=== PATIENT | female | born 1950 | race Caucasian/White ===

== ENCOUNTER 2017-01-27 10:49 | Outpatient (CLI) | payer OTHER ==
--- NOTE | 2017-01-30 18:01 | Mammography Report ---
DIGITAL SCREENING MAMMOGRAM: 01/27/2017 CLINICAL INDICATION: A 66-year-old with history of late childbearing for screening. COMPARISON: 01/2016, 11/2014, 10/2013, 02/2012, 11/2010, 11/2009, 09/2008, 07/2007 TECHNIQUE: Routine CC and MLO projections were obtained of the breasts. FINDINGS: Scattered fibroglandular tissue is present within the breasts. There are no dominant tati s, suspicious microcalcifications, or secondary signs of malignancy. In comparison to the previous st udies, there are no significant changes. ASSESSMENT: NO MAMMOGRAPHIC EVIDENCE OF MALIGNANCY. NO SIGNIFICANT INTERVAL CHANGES. RECOMMENDATION: Screening mammography is recommended annually. BIRADS category 1 - negative. STANDARD QUALIFYING STATEMENTS 1. This examination was reviewed with the aid of Computed-Aided Detection (CAD). 2. A negative or benign imaging report should not delay biopsy if clinically suspicious findings are present. Consider surgical consultation if warranted. More than 5% of cancers are not identified by i maging. 3. Dense breasts may obscure an underlying neoplasm. JOB #: [id number] EXT JOB #:[id number]
== END 2017-01-27 10:50 | disposition home or self-care (01) ==
LOC: DI.N 10:49
PROVIDERS: ATTEND Family Medicine
DX: Z12.31 Encounter for screening mammogram for malignant neoplasm of breast (principal)
CPT/HCPCS: 77067

== ENCOUNTER 2017-02-01 08:00 | Outpatient (CLI) | payer OTHER ==
[2017-02-01 13:56] LABS: HEMOGLOBIN A1C 0.79 g/dL
[2017-02-01 14:03] LABS: ALBUMIN/GLOBULIN RATIO 1.4 (1.0-2.2); BILIRUBIN,TOTAL 0.6 mg/dL (0.2-1.0); BUN - BLOOD UREA NITROGEN 14 mg/dL (6-20); CALCIUM 9.6 mg/dL (8.5-10.3); CARBON DIOXIDE - CO2 24 mmol/L (21-32); CHLORIDE 107 mmol/L (101-111); CHOL/HDL RATIO 4.1 (<4.4); CHOLESTEROL 182 mg/dL; CREATININE 0.8 mg/dL (0.4-1.0); GFR - MDRD 72 (>89); GLUCOSE 139 mg/dL (70-100); HDL CHOLESTEROL 44 mg/dL; LDL/HDL RATIO 2.2 (<4.4); POTASSIUM 4.2 mmol/L (3.5-5.0); SODIUM 140 mmol/L (135-145); TOTAL PROTEIN 7.3 g/dL (6.7-8.2); TRIGLYCERIDES 213 mg/dL; VLDL CHOLESTEROL 43 mg/dL
== END 2017-02-01 08:01 | disposition home or self-care (01) ==
LOC: LAB.WCP 08:00
PROVIDERS: ATTEND Physician Assistant Medical
DX: E11.9 Type 2 diabetes mellitus without complications (principal)
CPT/HCPCS: 36415; 80053; 80061; 83036

== ENCOUNTER 2017-06-27 14:17 | Outpatient (CLI) | payer OTHER ==
[2017-06-27 13:19] LABS: ALBUMIN/GLOBULIN RATIO 1.5 (1.0-2.2); BILIRUBIN,TOTAL 0.6 mg/dL (0.2-1.0); BUN - BLOOD UREA NITROGEN 14 mg/dL (6-20); CALCIUM 9.4 mg/dL (8.5-10.3); CARBON DIOXIDE - CO2 23 mmol/L (21-32); CHLORIDE 107 mmol/L (101-111); CHOL/HDL RATIO 4.5 (<4.4); CHOLESTEROL 200 mg/dL; CREATININE 0.8 mg/dL (0.4-1.0); GFR - MDRD 72 (>89); GLUCOSE 145 mg/dL (70-100); HDL CHOLESTEROL 44 mg/dL; HEMOGLOBIN A1C 0.85 g/dL; LDL/HDL RATIO 2.8 (<4.4); POTASSIUM 4.1 mmol/L (3.5-5.0); SODIUM 137 mmol/L (135-145); TOTAL PROTEIN 7.3 g/dL (6.7-8.2); TRIGLYCERIDES 167 mg/dL; VLDL CHOLESTEROL 33 mg/dL
== END 2017-06-27 14:18 | disposition home or self-care (01) ==
LOC: LAB.WCP 14:17
PROVIDERS: ATTEND Physician Assistant Medical
DX: E11.9 Type 2 diabetes mellitus without complications (principal)
CPT/HCPCS: 36415; 80053; 80061; 82043; 83036

== ENCOUNTER 2017-10-03 15:24 | Outpatient (CLI) | payer OTHER ==
[2017-10-03 12:40] LABS: ALBUMIN 4.3 g/dL (3.2-5.5); ALBUMIN/GLOBULIN RATIO 1.5 (1.0-2.2); ALKALINE PHOSPHATASE 65 IU/L (42-121); ALT ALANINE AMINOTRANSFERASE 40 IU/L (10-60); AST ASPARTATE AMINOTRANSFERASE 28 IU/L (10-42); BILIRUBIN,TOTAL 0.8 mg/dL (0.2-1.0); BUN - BLOOD UREA NITROGEN 14 mg/dL (6-20); CALCIUM 9.4 mg/dL (8.5-10.3); CARBON DIOXIDE - CO2 23 mmol/L (21-32); CHLORIDE 104 mmol/L (101-111); CHOL/HDL RATIO 6.2 (<4.4); CHOLESTEROL 222 mg/dL; CREATININE 0.8 mg/dL (0.4-1.0); GFR - MDRD 72 (>89); GLUCOSE 141 mg/dL (70-100); HDL CHOLESTEROL 36 mg/dL; LDL CHOLESTEROL,CALCULATED 143 mg/dL; SODIUM 136 mmol/L (135-145); TOTAL PROTEIN 7.2 g/dL (6.7-8.2); VLDL CHOLESTEROL 43 mg/dL
[2017-10-03 13:10] LABS: HB2 TOTAL 15.8 g/dL; HEMOGLOBIN A1C 0.93 g/dL; HEMOGLOBIN A1C % 7.5 % (4.6-6.2)
== END 2017-10-03 15:25 | disposition home or self-care (01) ==
LOC: LAB.WCP 15:24
PROVIDERS: ATTEND Physician Assistant Medical
DX: E11.9 Type 2 diabetes mellitus without complications (principal)
CPT/HCPCS: 36415; 80053; 80061; 83036; 83721

== ENCOUNTER 2017-11-08 14:40 | Emergency (ER) | payer OTHER ==
[2017-11-08 14:54] VITALS: BP 137/96
--- NOTE | 2017-11-08 16:29 | ED Physician Documentation ---
PD HPI LOWER EXT INJURY - Stated complaint Stated Complaint: L LEG PX - Chief complaint Chief Complaint: Trauma Ext - History obtained from History obtained from: Patient - History of Present Illness PD HPI LOW EXT INJURY LOCATION: Other (Without specific injury she has had increasing left knee pain for the last few days, and today it buckled on her wall walking and now she has anterior and posterior knee pain that is worse with walking, not relieved by Tylenol or Aleve. And she feels like she can only walk up on her tiptoes.) Review of Systems Constitutional: denies: Fever, Chills : denies: Dysuria, Frequency Skin: denies: Rash, Lesions Musculoskeletal: reports: Back pain (4 months). denies: Neck pain PD PAST MEDICAL HISTORY - Past Medical History Past Medical History: No Cardiovascular: Hypertension, High cholesterol, Murmur Respiratory: None Endocrine/Autoimmune: Type 2 diabetes GI: None : None HEENT: None Psych: Panic attacks Musculoskeletal: None Derm: None - Past Surgical History Past Surgical History: Yes General: Cholecystectomy - Present Medications Home Medications: Ambulatory Orders Medication Instructions Recorded Confirmed Aspirin [Aspir-Low] 81 mg PO DAILY 11/26/15 11/26/15 Lisinopril/Hydrochlorothiazide 20 mg PO DAILY 11/26/15 11/26/15 [Lisinopril-Hctz 20-25 mg Tab] Pravastatin [Pravachol] 20 mg PO DAILY 11/26/15 11/26/15 HYDROcod/ACETAM 5/325 [Chavies 5/325] 1 - 2 ea PO Q6H PRN #15 tablet 11/08/17 - Allergies Allergies/Adverse Reactions: Allergies Allergy/AdvReac Type Severity Reaction Status Date / Time niacin Allergy Hives Verified 11/08/17 14:53 Sulfa (Sulfonamide Allergy Hives Verified 11/08/17 14:53 Antibiotics) - Social History Does the pt smoke?: No Smoking Status: Never smoker Does the pt drink ETOH?: Yes Does the pt have substance abuse?: No - Immunizations Immunizations are current?: Yes - POLST Patient has POLST: No PD ED PE NORMAL - Vitals Vital signs reviewed: Yes - General General: Alert and oriented X 3, No acute distress - Extremities Extremities: Other (No effusion. No tenderness, she does have a lot of pain and a little laxity with ACL testing but meniscal testing and the rest of her ligaments seem normal.) - Neuro Neuro: Alert and oriented X 3, Normal speech Results - Vitals Vitals: Vital Signs - 24 hr 11/08/17 14:49 Temperature 36.8 C Heart Rate 97 Respiratory 17 Rate Blood Pressure 137/96 H O2 Saturation 96 Oxygen O2 Source Room air - Rads (name of study) L knee Radiology: EMP read contemporaneously (Medial compartment narrowing without acute disease) Departure - Departure Disposition: 01 Home, Self Care Clinical Impression: Internal derangement of left knee Condition: Good Record reviewed to determine appropriate education?: Yes Instructions: ED Knee Injury Cruciate Ligament Follow-Up: [facility] [Provider Group] Prescriptions: HYDROcod/ACETAM 5/325 [Chavies 5/325] 1 - 2 ea PO Q6H PRN #15 tablet PRN Reason: Pain Comments: Your blood pressure was elevated today on check into the emergency department. This does not mean that you have hypertension, it is a common phenomenon to come to the emergency department and have elevated blood pressure. I recommend that you see your primary care physician within the week to have it rechecked when you are feeling better.
--- NOTE | 2017-11-08 17:02 | XRAY Report ---
EXAM: LEFT KNEE RADIOGRAPHY EXAM DATE: 11/08/2017 04:49 PM. CLINICAL HISTORY: Worsening posterior knee pain for one week. COMPARISON: None. TECHNIQUE: 4 views. FINDINGS: Bones: Normal. No fractures or bone lesions. Joints: Mild medial compartment narrowing. No effusion. No subluxations. Soft Tissues: Unremarkable. IMPRESSION: Mild medial compartment narrowing, otherwise unremarkable knee radiography. [facility] Referring Provider Line: [phone] SITE ID: [id number]
== END 2017-11-08 17:30 | disposition home or self-care (01) ==
LOC: ED 14:40
DX: M23.92 Unspecified internal derangement of left knee (principal); I10 Essential (primary) hypertension; E78.00 Pure hypercholesterolemia, unspecified; E11.9 Type 2 diabetes mellitus without complications
CPT/HCPCS: 99283

== ENCOUNTER 2017-11-18 07:43 | Outpatient (CLI) | payer OTHER ==
--- NOTE | 2017-11-18 22:37 | MRI Report ---
EXAM: LEFT KNEE MRI WITHOUT CONTRAST EXAM DATE: 11/18/2017 09:16 AM. CLINICAL HISTORY: Left medial meniscus tear. COMPARISON: Radiographs 11/08/2017. TECHNIQUE: Multiplanar, multisequence T1-weighted and fluid-sensitive sequences of the knee without c ontrast. Other: None. FINDINGS: Bones: No fracture. Small reactive cyst at the posterior margin medial tibial plateau. Mild reactive edema and cystic change at the lateral trochlea.. Articular Cartilage: Diffuse deep partial-thickness loss medial compartment. Shallow partial-thicknes s loss at the lateral tibial plateau. Deep partial-thickness loss and fissuring/tearing of the medial and lateral patellar facets. Small region of full-thickness loss and adjacent fissuring/tearing late ral trochlea. Medial meniscus: Deep partial to full thickness radial tear at the junction of the posterior horn and root. Mild extrusion of the body in the medial gutter. Lateral Meniscus: Intrasubstance degeneration and subtle horizontal tear extending to the inferior ar ticular surface junction of the posterior horn and root. Cruciate Ligaments: The anterior and posterior cruciate ligaments are intact. Collateral Ligaments: The medial collateral and lateral collateral ligamentous structures are intact. Tendons: The quadriceps, patellar, semimembranosus, and popliteus tendons are unremarkable. Musculature: No fatty atrophy. Minimal edema in the popliteus muscle. Other: Large joint effusion with synovitis. No popliteal cyst. No loose bodies. The medial and later al retinacula are intact. Subcutaneous soft tissues are unremarkable. Mild reactive edema in Hoffa's fat pad. IMPRESSION: 1. Deep partial to full-thickness radial tear at the junction of the posterior horn and root medial m eniscus. 2. Degenerative fraying and subtle horizontal tear at the junction of the posterior horn and root lat eral meniscus. 3. Large joint effusion with synovitis. 4. 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 [facility] MUSCULOSKELETAL RADIOLOGY SECTION Referring Provider Line: [phone] SITE ID: [id number]
== END 2017-11-18 07:44 | disposition home or self-care (01) ==
LOC: DI 07:43
PROVIDERS: ATTEND Orthopaedic Surgery
DX: S83.242A Other tear of medial meniscus, current injury, left knee, initial encounter (principal); S83.282A Other tear of lateral meniscus, current injury, left knee, initial encounter; M65.88 Other synovitis and tenosynovitis, other site; M94.262 Chondromalacia, left knee

== ENCOUNTER 2018-01-03 07:18 | Outpatient (CLI) | payer OTHER ==
[2018-01-03 13:11] LABS: BUN - BLOOD UREA NITROGEN 18 mg/dL (6-20); CALCIUM 9.6 mg/dL (8.5-10.3); CARBON DIOXIDE - CO2 25 mmol/L (21-32); CHLORIDE 107 mmol/L (101-111); CHOL/HDL RATIO 4.4 (<4.4); CHOLESTEROL 196 mg/dL; CREATININE 0.8 mg/dL (0.4-1.0); GFR - MDRD 72 (>89); GLUCOSE 127 mg/dL (70-100); HDL CHOLESTEROL 45 mg/dL; LDL CHOLESTEROL,CALCULATED 110 mg/dL; LDL/HDL RATIO 2.4 (<4.4); SODIUM 137 mmol/L (135-145); VLDL CHOLESTEROL 41 mg/dL
[2018-01-03 13:16] LABS: HB2 TOTAL 16.6 g/dL; HEMOGLOBIN A1C 0.78 g/dL; HEMOGLOBIN A1C % 6.5 % (4.6-6.2)
== END 2018-01-03 07:19 | disposition home or self-care (01) ==
LOC: LAB.WCP 07:18
PROVIDERS: ATTEND Physician Assistant Medical
DX: E11.9 Type 2 diabetes mellitus without complications (principal)
CPT/HCPCS: 36415; 80048; 80061; 83036; 83721

== ENCOUNTER 2018-03-29 10:40 | Outpatient (CLI) | payer OTHER ==
--- NOTE | 2018-03-30 10:24 | Mammography Report ---
Reason: CALL TO PATIENT, NO ANSWER [id number] [facility] Procedure Date: 03/29/2018 Accession Number: [id number] / [id number] Procedure: LINDEN - Screening Mammo Dig Bilat CPT Code: FULL RESULT: EXAM: Screening Mammo Dig Bilat DATE: 03/29/2018 3:19 PM CLINICAL HISTORY: Routine screening TECHNIQUE: Bilateral CC and MLO views were obtained. COMPARISON: 01/27/2017, 01/28/2016, 12/16/2014, 11/07/2013 and 03/02/2012 FINDINGS: There are scattered fibroglandular densities. There has been no significant interval change. No suspicious masses, clustered microcalcifications, or regions of architectural distortion are identified. IMPRESSION: Negative examination RECOMMENDATION: Routine annual screening unless otherwise clinically indicated. BIRADS CATEGORY 1: Negative STANDARD QUALIFYING STATEMENTS: 1. This examination was reviewed with the aid of Computer-Aided Detection (CAD). 2. A negative or benign imaging report should not delay biopsy if clinically suspicious findings are present. Consider surgical consultation if warrented. More than 5% of cancers are not identified by imaging. 3. Dense breasts may obscure an underlying neoplasm.
== END 2018-03-29 10:41 | disposition home or self-care (01) ==
LOC: DI 10:40
PROVIDERS: ATTEND Radiology Diagnostic Radiology
DX: Z12.31 Encounter for screening mammogram for malignant neoplasm of breast (principal)
CPT/HCPCS: 77067

== ENCOUNTER 2018-05-09 07:13 | Outpatient (CLI) | payer OTHER ==
[2018-05-09 14:12] LABS: ALBUMIN 4.2 g/dL (3.2-5.5); ALBUMIN/GLOBULIN RATIO 1.4 (1.0-2.2); ALKALINE PHOSPHATASE 67 IU/L (42-121); ALT ALANINE AMINOTRANSFERASE 27 IU/L (10-60); AST ASPARTATE AMINOTRANSFERASE 23 IU/L (10-42); BILIRUBIN,TOTAL 0.7 mg/dL (0.2-1.0); BUN - BLOOD UREA NITROGEN 18 mg/dL (6-20); CALCIUM 9.3 mg/dL (8.5-10.3); CARBON DIOXIDE - CO2 24 mmol/L (21-32); CHLORIDE 106 mmol/L (101-111); CHOL/HDL RATIO 3.8 (<4.4); CHOLESTEROL 179 mg/dL; CREATININE 0.8 mg/dL (0.4-1.0); GFR - MDRD 72 (>89); GLUCOSE 143 mg/dL (70-100); HDL CHOLESTEROL 47 mg/dL; LDL CHOLESTEROL,CALCULATED 93 mg/dL; SODIUM 138 mmol/L (135-145); TOTAL PROTEIN 7.2 g/dL (6.7-8.2); VLDL CHOLESTEROL 39 mg/dL
[2018-05-09 14:35] LABS: HB2 TOTAL 15.2 g/dL; HEMOGLOBIN A1C 0.77 g/dL; HEMOGLOBIN A1C % 6.8 % (4.6-6.2)
== END 2018-05-09 07:14 | disposition home or self-care (01) ==
LOC: LAB.WCP 07:13
PROVIDERS: ATTEND Physician Assistant Medical
DX: E11.9 Type 2 diabetes mellitus without complications (principal)
CPT/HCPCS: 36415; 80053; 80061; 83036; 83721

== ENCOUNTER 2018-08-09 07:10 | Outpatient (CLI) | payer OTHER ==
[2018-08-09 13:03] LABS: BUN - BLOOD UREA NITROGEN 14 mg/dL (6-20); CALCIUM 9.5 mg/dL (8.5-10.3); CARBON DIOXIDE - CO2 24 mmol/L (21-32); CHLORIDE 104 mmol/L (101-111); CHOL/HDL RATIO 2.8 (<4.4); CHOLESTEROL 145 mg/dL; CREATININE 0.9 mg/dL (0.4-1.0); GFR - MDRD 63 (>89); GLUCOSE 138 mg/dL (70-100); HDL CHOLESTEROL 51 mg/dL; LDL CHOLESTEROL,CALCULATED 69 mg/dL; LDL/HDL RATIO 1.4 (<4.4); SODIUM 138 mmol/L (135-145); VLDL CHOLESTEROL 25 mg/dL
[2018-08-09 13:15] LABS: HEMOGLOBIN A1C 0.86 g/dL; HEMOGLOBIN A1C % 7.1 % (4.6-6.2)
== END 2018-08-09 23:59 | disposition home or self-care (01) ==
LOC: LAB.WCP 07:10
PROVIDERS: ATTEND Physician Assistant Medical
DX: E11.9 Type 2 diabetes mellitus without complications (principal)
CPT/HCPCS: 36415; 80048; 80061; 82043; 83036; 83721

== ENCOUNTER 2018-09-14 08:48 | Outpatient (CLI) | payer OTHER ==
--- NOTE | 2018-09-14 14:41 | MRI Report ---
Reason: KNEE PAIN,RIGHT Procedure Date: 09/14/2018 Accession Number: [id number] / [id number] Procedure: MRI - Knee RT W/O CPT Code: FULL RESULT: EXAM: RIGHT KNEE MRI WITHOUT CONTRAST EXAM DATE: 09/14/2018 09:49 AM. CLINICAL HISTORY: KNEE PAIN,RIGHT. COMPARISON: KNEE 3 VIEW RT 08/16/2018 8:58 AM. TECHNIQUE: Multiplanar, multisequence T1-weighted and fluid-sensitive sequences of the knee without contrast. Other: None. FINDINGS: Ligaments: The anterior cruciate, posterior cruciate, and lateral collateral ligament are normal. The medial collateral ligament is mildly thickened and increased in signal and there is overlying and underlying soft tissue edema, particularly proximally, consistent with partial tear which is grade I-II by MRI criteria. No MCL laxity or discontinuity to indicate complete tear. Patellofemoral compartment: Diffuse full-thickness chondromalacia of the central and medial retropatellar surface with partial thickness chondromalacia laterally. Partial thickness chondromalacia of the central and medial femoral trochlea. Tiny patellofemoral osteophytes indicate osteoarthritis. Patellofemoral alignment is anatomic. The distal quadriceps and patellar tendons are normal. The medial and lateral patellofemoral retinacula are normal. Medial compartment: The medial meniscus is intact. Medial compartment cartilage is preserved. No medial compartment osteoarthritis. Lateral compartment: The lateral meniscus is intact. Lateral compartment cartilage is preserved. There is a small contusion along the posterior lateral margin of the lateral femoral condyle. No significant lateral compartment osteoarthritis. Soft tissues: A tiny knee effusion is present. There is also a tiny popliteal cyst. IMPRESSION: 1. Partial tear of the proximal medial collateral ligament. 2. Small contusion of the posterolateral aspect of the lateral femoral condyle, probably reflecting direct blow. 3. 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 4. No meniscal tear. [facility] MUSCULOSKELETAL RADIOLOGY SECTION
== END 2018-09-14 08:49 | disposition home or self-care (01) ==
LOC: DI 08:48
PROVIDERS: ATTEND Physician Assistant Medical
DX: S83.411A Sprain of medial collateral ligament of right knee, initial encounter (principal); S70.11XA Contusion of right thigh, initial encounter; M94.261 Chondromalacia, right knee; M17.11 Unilateral primary osteoarthritis, right knee

== ENCOUNTER 2018-10-26 09:34 | Outpatient (CLI) | payer OTHER | END 2018-10-26 23:59 | disposition home or self-care (01) | LOC: LAB 09:34 → LAB.R 23:59 | PROVIDERS: ATTEND Obstetrics & Gynecology | DX: Z11.3 Encounter for screening for infections with a predominantly sexual mode of transmission (principal) | CPT/HCPCS: 87491; 87591 ==

== ENCOUNTER 2018-10-26 11:21 | Outpatient (CLI) | payer OTHER ==
[2018-10-27 11:46] LABS: HEPATITIS C ANTIBODY NON-REACTIVE (NON-REACTIVE)
[2018-10-27 12:02] LABS: HEPATITIS B SURFACE ANTIGEN NON-REACTIVE (NON-REACTIVE)
[2018-10-27 14:02] LABS: HIV AG/AB 4TH GEN NON-REACTIVE (NON-REACTIVE)
== END 2018-10-26 11:22 | disposition home or self-care (01) ==
LOC: LAB 11:21
PROVIDERS: ATTEND Obstetrics & Gynecology
DX: Z11.3 Encounter for screening for infections with a predominantly sexual mode of transmission (principal); Z11.59 Encounter for screening for other viral diseases
CPT/HCPCS: 36415; 81599; 86592; 86803; 87340; 87389

== ENCOUNTER 2018-11-02 05:25 | Outpatient (CLI) | payer OTHER ==
--- NOTE | 2018-11-02 10:28 | Ultrasound Report ---
Reason: POSTMENOPAUSAL BLEEDING Procedure Date: 11/02/2018 Accession Number: [id number] / [id number] Procedure: US - Pelvic w/Transvaginal CPT Code: FULL RESULT: EXAM: PELVIC ULTRASOUND EXAM DATE: 11/02/2018 05:36 AM. CLINICAL HISTORY: Postmenopausal bleeding. COMPARISON: None. TECHNIQUE: Realtime transabdominal pelvic scan performed to identify the uterus and adnexa and as an overview of other pelvic structures, followed by transvaginal scan to provide greater detail of the uterus and adnexa, with static image documentation. FINDINGS: Examination is limited by marked motion artifact on transvaginal images. Uterus: 6.7 x 3.0 x 4.1 cm, volume 44.1 cc. Anteverted position. Overall size is within normal limits with echotexture appearing somewhat heterogeneous without a discrete mass identified. Masses: None. Endometrium: 5 mm. Suggestion of irregular contour and echogenic foci without definite endometrial mass or abnormal blood flow on color Doppler. Cervix: Unremarkable. Right Ovary: 2.1 x 1.2 x 0.8 cm, volume 1 cc. Normal echotexture and blood flow. Left Ovary: 1.6 x 1.0 x 2.0 cm, volume 1.7 cc. Normal echotexture and blood flow. Free Fluid: None. Other: None. IMPRESSION: Limited examination with heterogeneous appearing myometrium and somewhat irregular appearance of the endometrium without definite mass detected. [facility]
== END 2018-11-02 05:26 | disposition home or self-care (01) ==
LOC: DI 05:25
PROVIDERS: ATTEND Obstetrics & Gynecology
DX: N95.0 Postmenopausal bleeding (principal)
CPT/HCPCS: 76830; 76856

== ENCOUNTER 2018-11-20 07:04 | Outpatient (CLI) | payer OTHER ==
[2018-11-20 12:23] LABS: CALCIUM 9.5 mg/dL (8.5-10.3); CREATININE 0.7 mg/dL (0.4-1.0)
[2018-11-20 12:48] LABS: HB2 TOTAL 15.4 g/dL; HEMOGLOBIN A1C 0.89 g/dL; HEMOGLOBIN A1C % 7.4 % (4.6-6.2)
== END 2018-11-20 07:05 | disposition home or self-care (01) ==
LOC: LAB.WCP 07:04
PROVIDERS: ATTEND Physician Assistant Medical
DX: E11.9 Type 2 diabetes mellitus without complications (principal)
CPT/HCPCS: 36415; 80048; 83036

== ENCOUNTER 2019-02-18 08:00 | Outpatient (CLI) | payer MEDICARE, BC ==
[2019-02-18 13:18] LABS: HEMOGLOBIN A1C % 7.9 % (4.6-6.2)
[2019-02-18 13:34] LABS: ALBUMIN 4.4 g/dL (3.2-5.5); ALBUMIN/GLOBULIN RATIO 1.5 (1.0-2.2); ALKALINE PHOSPHATASE 67 IU/L (42-121); ALT ALANINE AMINOTRANSFERASE 43 IU/L (10-60); AST ASPARTATE AMINOTRANSFERASE 31 IU/L (10-42); BUN - BLOOD UREA NITROGEN 14 mg/dL (6-20); CALCIUM 9.8 mg/dL (8.5-10.3); CARBON DIOXIDE - CO2 23 mmol/L (21-32); CHLORIDE 105 mmol/L (101-111); CHOL/HDL RATIO 3.4 (<4.4); CHOLESTEROL 155 mg/dL; CREATININE 0.8 mg/dL (0.4-1.0); GFR - MDRD 72 (>89); GLUCOSE 158 mg/dL (70-100); HDL CHOLESTEROL 45 mg/dL; LDL CHOLESTEROL,CALCULATED 70 mg/dL; LDL/HDL RATIO 1.6 (<4.4); SODIUM 140 mmol/L (135-145); TOTAL PROTEIN 7.4 g/dL (6.7-8.2); VLDL CHOLESTEROL 40 mg/dL
== END 2019-02-18 08:01 | disposition home or self-care (01) ==
LOC: LAB.WCP 08:00
PROVIDERS: ATTEND Physician Assistant Medical
DX: E11.9 Type 2 diabetes mellitus without complications (principal)
CPT/HCPCS: 36415; 80053; 80061; 83036; 83721

== ENCOUNTER 2019-05-20 07:28 | Outpatient (CLI) | payer MEDICARE, OTHER ==
[2019-05-20 12:42] LABS: CALCIUM 9.8 mg/dL (8.5-10.3); CREATININE 0.7 mg/dL (0.4-1.0)
[2019-05-20 14:05] LABS: HB2 TOTAL 15.1 g/dL; HEMOGLOBIN A1C 0.71 g/dL; HEMOGLOBIN A1C % 6.5 % (4.6-6.2)
[2019-05-28 06:16] LABS: HDL LARGE 4937 nmol/L (3966-11938); LDL PARTICLE NUMBER 924 nmol/L (732-2035); LDL PATTERN B Pattern (A); LDL PEAK SIZE 215.6 Angstrom (> OR = 217.4); LDL SMALL 163 nmol/L (75-452)
== END 2019-05-20 23:59 | disposition home or self-care (01) ==
LOC: LAB.WCP 07:28
PROVIDERS: ATTEND Physician Assistant Medical
DX: E11.9 Type 2 diabetes mellitus without complications (principal); E78.5 Hyperlipidemia, unspecified
CPT/HCPCS: 36415; 80048; 80061; 81599; 83036; 83704

== ENCOUNTER 2019-06-14 15:30 | Outpatient (CLI) | payer MEDICARE, OTHER ==
--- NOTE | 2019-06-17 12:40 | Mammography Report ---
Reason: SCREENING MAMMO Procedure Date: 06/14/2019 Accession Number: [id number] / [id number] Procedure: LINDEN - Screening Mammo w/Parker CPT Code: Final Report FULL RESULT: EXAM: Screening Mammo w/Parker DATE: 06/14/2019 3:57 PM CLINICAL HISTORY: The patient is an asymptomatic 68-year-old female. No reported personal nor family history of breast cancer. TECHNIQUE: (B) - Bilateral CC and MLO views were obtained. COMPARISON: 03/29/2018, 01/27/2017, 01/28/2016, 12/16/2014 and 11/07/2013 PARENCHYMAL PATTERN: (A) - The breasts demonstrate scattered fibroglandular densities bilaterally. FINDINGS: There are no suspicious masses, calcifications, or areas of distortion. IMPRESSION: Negative examination. BI-RADS category 1. RECOMMENDATION: (ANNUAL) - Recommend routine annual screening mammography. BI-RADS CATEGORY: BI-RADS category 1 STANDARD QUALIFYING STATEMENTS: 1. This examination was not reviewed with the aid of Computer-Aided Detection (CAD). 2. A negative or benign imaging report should not preclude biopsy if clinically suspicious findings are present. 3. Dense breasts may obscure an underlying neoplasm. 4. This examination was reviewed with the aid of 3D breast imaging (tomosynthesis).
== END 2019-06-14 15:31 | disposition home or self-care (01) ==
LOC: DI 15:30
DX: Z12.31 Encounter for screening mammogram for malignant neoplasm of breast (principal)
CPT/HCPCS: 77063; 77067

== ENCOUNTER 2019-08-20 09:53 | Outpatient (CLI) | payer MEDICARE, OTHER ==
[2019-08-20 12:25] LABS: CALCIUM 9.4 mg/dL (8.5-10.3); CREATININE 0.7 mg/dL (0.4-1.0)
[2019-08-20 12:33] LABS: HB2 TOTAL 14.9 g/dL; HEMOGLOBIN A1C 0.7 g/dL; HEMOGLOBIN A1C % 6.4 % (4.6-6.2)
== END 2019-08-20 23:59 | disposition home or self-care (01) ==
LOC: LAB.WCP 09:53
PROVIDERS: ATTEND Physician Assistant Medical
DX: E11.9 Type 2 diabetes mellitus without complications (principal)
CPT/HCPCS: 36415; 80048; 83036

== ENCOUNTER 2019-09-05 08:31 | Outpatient (CLI) | payer MEDICARE, OTHER ==
--- NOTE | 2019-09-10 11:57 | DEXA Report ---
Reason: POSTMENOPAUSAL STATUS Procedure Date: 09/05/2019 Accession Number: [id number] / [id number] Procedure: DEX - Dexa Spine and/or Hip CPT Code: Final Report FULL RESULT: EXAM: Dexa Spine and/or Hip DATE: 09/05/2019 8:53 AM CLINICAL HISTORY: POSTMENOPAUSAL STATUS TECHNIQUE: Dual energy x-ray absorptiometry (DXA) was performed on a [employer] System. Regions measured are the AP Spine, femoral neck, and if needed forearm. COMPARISON: 01/12/2016. In accordance with the International Society for Clinical Densitometry (ISCD) guidelines, data from previous exams may be reanalyzed using current recommendations and techniques. This is done to allow a more accurate basis for comparison with the current study. FINDINGS: The data for the lumbar spine is as follows: BMD (g/cm/cm) T-SCORE Z-SCORE REGION L1 1.014 -1.0 0.0 L2 1.058 -1.2 -0.2 L3 1.059 -1.2 -0.2 L4 1.117 -0.7 0.3 TOTAL 1.065 -1.0 0.0 NOTE: All evaluable vertebrae are used for classification The data for the hip is as follows: BMD (g/cm/cm) T-SCORE Z-SCORE REGION Neck 0.977 -0.4 0.7 TOTAL 0.944 -0.5 0.4 NOTE: The femoral neck or total proximal femur, whichever is lowest, is used for classification. DXA RESULTS SUMMARY: Spine SCAN DATE [age] BMD CHANGE VS CHANGE VS PREVIOUS PREVIOUS % [birth year]2019 [age] 1.060 -0.002 -0.2 01[birth year]12/2016 [age] 1.062 * Denotes significant change at the 95% confidence level. Denotes dissimilar scan types or analysis methods. DXA RESULTS SUMMARY: Hip SCAN DATE AGE BMD CHANGE VS CHANGE VS PREVIOUS PREVIOUS % [birth year]2019 68.8 0.953 -0.015 -1.5 01[birth year]12[birth year]2016 65.1 * Denotes significant change at the 95% confidence level. Denotes dissimilar scan types or analysis methods. IMPRESSION: THE WHO CLASSIFICATION BASED ON THE INTERNATIONAL REFERENCE STANDARD IS NORMAL. THE FRACTURE RISK IS NOT INCREASED. RECOMMENDATION: Patients with diagnosis of osteoporosis or osteopenia should have regular bone mineral density assessment. For those eligible for Medicare, routine testing is allowed once every 2 years. Testing frequency can be increased for patients who have rapidly progressing disease or for those who are receiving medical therapy to restore bone mass. COMMENT: World Health Organization (WHO) definitions for osteoporosis and osteopenia: NORMAL BMD: T-score at -1.0 or higher, fracture risk is low OSTEOPENIA BMD: T-score between -1.0 and -2.5, fracture risk is increased. OSTEOPOROSIS BMD: T-score at -2.5 or lower, fracture risk is high. National Osteoporosis Foundation recommends: 1. Obtain adequate dietary calcium (at least 1200 mg per day) and vitamin D (400-800 international units per day). 2. Participate, as appropriate, in regular weightbearing and muscle-strengthening exercise. 3. Avoid tobacco use and reduce alcohol and caffeine intake. 4. For more detailed information see the website at www.NOF.org.
== END 2019-09-05 08:32 | disposition home or self-care (01) ==
LOC: DI 08:31
PROVIDERS: ATTEND Physician Assistant Medical
DX: Z13.820 Encounter for screening for osteoporosis (principal); Z78.0 Asymptomatic menopausal state
CPT/HCPCS: 77080

== ENCOUNTER 2020-02-25 08:00 | Outpatient (CLI) | payer MEDICARE, OTHER ==
[2020-02-25 12:49] LABS: ALBUMIN 4.4 g/dL (3.2-5.5); ALBUMIN/GLOBULIN RATIO 1.6 (1.0-2.2); ALKALINE PHOSPHATASE 65 IU/L (42-121); ALT ALANINE AMINOTRANSFERASE 25 IU/L (10-60); AST ASPARTATE AMINOTRANSFERASE 19 IU/L (10-42); BILIRUBIN,TOTAL 0.6 mg/dL (0.2-1.0); BUN - BLOOD UREA NITROGEN 17 mg/dL (6-20); CALCIUM 9.4 mg/dL (8.5-10.3); CARBON DIOXIDE - CO2 24 mmol/L (21-32); CHLORIDE 107 mmol/L (101-111); CHOL/HDL RATIO 3.3 (<4.4); CHOLESTEROL 160 mg/dL; CREATININE 0.7 mg/dL (0.4-1.0); GLUCOSE 132 mg/dL (70-100); HDL CHOLESTEROL 49 mg/dL; LDL CHOLESTEROL,CALCULATED 82 mg/dL; LDL/HDL RATIO 1.7 (<4.4); SODIUM 138 mmol/L (135-145); TOTAL PROTEIN 7.2 g/dL (6.7-8.2); VLDL CHOLESTEROL 29 mg/dL
[2020-02-25 13:11] LABS: HB2 TOTAL 15.6 g/dL; HEMOGLOBIN A1C 0.75 g/dL; HEMOGLOBIN A1C % 6.6 % (4.6-6.2)
== END 2020-02-25 23:59 | disposition home or self-care (01) ==
LOC: LAB.WCP 08:00
PROVIDERS: ATTEND Physician Assistant Medical
DX: E11.9 Type 2 diabetes mellitus without complications (principal); E78.5 Hyperlipidemia, unspecified; K21.9 Gastro-esophageal reflux disease without esophagitis
CPT/HCPCS: 36415; 80053; 80061; 83036; 83721

== ENCOUNTER 2020-04-16 07:00 | Outpatient (CLI) | payer MEDICARE, OTHER | END 2020-04-16 23:59 | disposition home or self-care (01) | LOC: LAB.R 07:00 | PROVIDERS: ATTEND Nurse Practitioner Obstetrics & Gynecology | DX: R10.2 Pelvic and perineal pain (principal) | CPT/HCPCS: 87086 ==

== ENCOUNTER 2020-04-23 08:15 | Outpatient (CLI) | payer MEDICARE, OTHER ==
[2020-04-26 17:35] LABS: HDL LARGE 6083 nmol/L (>6729); LDL PARTICLE NUMBER 1259 nmol/L (<1138); LDL PATTERN B Pattern (A); LDL PEAK SIZE 216.8 Angstrom (>222.9); LDL SMALL 247 nmol/L (<142)
== END 2020-04-23 23:59 | disposition home or self-care (01) ==
LOC: LAB.WCP 08:15
PROVIDERS: ATTEND Physician Assistant Medical
DX: E78.5 Hyperlipidemia, unspecified (principal); R10.2 Pelvic and perineal pain
CPT/HCPCS: 36415; 80061; 81599; 83704; 87086

== ENCOUNTER 2020-04-25 17:56 | Outpatient (CLI) | payer MEDICARE, OTHER ==
--- NOTE | 2020-04-25 20:12 | Ultrasound Report ---
PROCEDURE: Pelvic w/Transvaginal INDICATIONS: PELVIC PAIN TECHNIQUE: Real-time scanning was performed of the pelvic organs, with image documentation. Additional endovagi nal scanning was necessary due to incomplete visualization of the adnexal and endometrial structures by transabdominal scanning. COMPARISON: Pelvic ultrasound dated 11/02/2018. FINDINGS: Transabdominal scanning: Limited scanning through the kidneys shows no hydronephrosis. No pathologi c free abdominal or pelvic fluid. Endovaginal scanning: Uterus: Uterus is normal in size at 5.6 x 2.9 x 4.1 cm. The endometrium measures 3 mm in combined t hickness. A few nonspecific echogenic foci are seen in the endometrium. A posterior intramural fibro id measures 0.8 x 0.5 x 0.8 cm. Ovaries: The right ovary measures 1.9 x 1.2 x 1.6 cm. The left ovary measures 1.9 x 1.1 x 1.0 cm. Th e ovaries are within normal limits. IMPRESSION: 1. No acute abnormality identified. Normal endometrial thickness. 2. Small 0.8 cm posterior intramural uterine fibroid. Reviewed by: Mio Grayson MD on 04/25/2020 8:10 PM PDT Approved by: Mio Grayson MD on 04/25/2020 8:10 PM PDT Station ID: [id number]
== END 2020-04-25 17:57 | disposition home or self-care (01) ==
LOC: DI 17:56
PROVIDERS: ATTEND Nurse Practitioner Obstetrics & Gynecology
DX: R10.2 Pelvic and perineal pain (principal); D25.1 Intramural leiomyoma of uterus
CPT/HCPCS: 76830; 76856

== ENCOUNTER 2020-05-14 09:45 | Outpatient (CLI) | payer MEDICARE, OTHER | END 2020-05-14 09:46 | LOC: LAB.R 09:45 | PROVIDERS: ATTEND Nurse Practitioner Obstetrics & Gynecology | DX: R10.2 Pelvic and perineal pain (principal) | CPT/HCPCS: 87086 ==

== ENCOUNTER 2020-05-21 07:00 | Outpatient (CLI) | payer MEDICARE, OTHER | END 2020-05-21 23:59 | disposition home or self-care (01) | LOC: LAB.R 07:00 | PROVIDERS: ATTEND Obstetrics & Gynecology | DX: R10.2 Pelvic and perineal pain (principal); N39.41 Urge incontinence | CPT/HCPCS: 87086 ==

== ENCOUNTER 2020-05-22 10:57 | Outpatient (CLI) | payer MEDICARE, OTHER | END 2020-05-22 10:58 | disposition home or self-care (01) | LOC: NS 10:57 | PROVIDERS: ATTEND Physician Assistant Medical | DX: Z71.3 Dietary counseling and surveillance (principal); E11.9 Type 2 diabetes mellitus without complications | CPT/HCPCS: 97803 ==

== ENCOUNTER 2020-08-12 10:56 | Outpatient (CLI) | payer MEDICARE, OTHER ==
--- NOTE | 2020-08-13 09:47 | Mammography Report ---
BILATERAL DIGITAL SCREENING MAMMOGRAM 3D/2D: 08/12/2020 CLINICAL: Routine screening. Comparison is made to exams dated: 06/14/2019 mammogram, 03/29/2018 mammogram, 01/27/2017 mammogram, 01/27 mammogram, 12/16/2014 mammogram, and 11/07/2013 mammogram - Merged with [facility]. There are scattered fibroglandular elements in both breasts. No significant masses, calcifications, or other findings are seen in either breast. There has been no significant interval change. IMPRESSION: NEGATIVE There is no mammographic evidence of malignancy. A 1 year screening mammogram is recommended. This exam was interpreted at Station ID: [id number]. NOTE: For mammograms, a report in lay terms will be sent to the patient. Approximately 15% of breast malignancies will not be visualized mammographically. In the management of a palpable breast mass, a negative mammogram must not discourage biopsy of a clinically suspicious lesion. Electronically Signed By: Mauro [email or web address]/zoya:08/12/2020 16:20:36 ACR BI-RADS Category 1: Negative 3341F PARENCHYMAL PATTERN: (A) - The breast(s) demonstrate(s) scattered fibroglandular densities. BI-RADS CATEGORY: (1) - 1 RECOMMENDATION: (ANNUAL) - Recommend routine annual screening mammography. [id number] 1 year screening LATERALITY: (B)
== END 2020-08-12 10:57 | disposition home or self-care (01) ==
LOC: DI.N 10:56
DX: Z12.31 Encounter for screening mammogram for malignant neoplasm of breast (principal)

== ENCOUNTER 2020-08-27 08:00 | Outpatient (CLI) | payer MEDICARE, OTHER ==
[2020-08-27 13:01] LABS: HEMOGLOBIN A1c% 6.8 % (4.27-6.07)
[2020-08-27 13:57] LABS: CREATININE 0.7 mg/dL (0.4-1.0)
[2020-09-01 09:02] LABS: HDL LARGE 5865 nmol/L (>6729); LDL PARTICLE NUMBER 977 nmol/L (<1138); LDL PATTERN B Pattern (A); LDL PEAK SIZE 215.6 Angstrom (>222.9); LDL SMALL 185 nmol/L (<142)
== END 2020-08-27 23:59 ==
LOC: LAB.WCP 08:00
PROVIDERS: ATTEND Physician Assistant Medical
DX: E11.9 Type 2 diabetes mellitus without complications (principal); E78.5 Hyperlipidemia, unspecified
CPT/HCPCS: 36415; 80048; 80061; 81599; 83036; 83704

== ENCOUNTER 2020-12-11 16:59 | Outpatient (CLI) | payer MEDICARE, OTHER ==
--- NOTE | 2020-12-11 21:07 | XRAY Report ---
PROCEDURE: Lumbar Spine 2 View INDICATIONS: LOW BACK PAIN TECHNIQUE: 2 views of the lumbar spine were acquired. COMPARISON: 12/06/2017. FINDINGS: Bones: 5 [id number]-pwc-wizynhq vertebrae are present. Development of mild degenerative anterolisthesis of L4 on L5 measuring 7 mm secondary to facet arthropathy. There is multilevel facet arthropathy. No richard tebral body compression fractures. No suspicious bony lesions. Soft tissues: Overlying bowel gas pattern is normal. No suspicious soft tissue calcifications. IMPRESSION: Multilevel facet arthropathy with development of mild degenerative anterolisthesis of L4 on L5. Reviewed by: Ga Murphy MD on 12/11/2020 9:06 PM PDT Approved by: Ga Murphy MD on 12/11/2020 9:06 PM PDT Station ID: [id number]
== END 2020-12-11 17:00 | disposition home or self-care (01) ==
LOC: DI.N 16:59
PROVIDERS: ATTEND Physician Assistant Medical
DX: M43.16 Spondylolisthesis, lumbar region (principal); M47.816 Spondylosis without myelopathy or radiculopathy, lumbar region

== ENCOUNTER 2020-12-24 08:00 | Outpatient (CLI) | payer MEDICARE, OTHER ==
[2020-12-24 12:30] LABS: ALBUMIN 4.4 g/dL (3.2-5.5); ALBUMIN/GLOBULIN RATIO 1.4 (1.0-2.2); ALKALINE PHOSPHATASE 69 IU/L (42-121); ALT ALANINE AMINOTRANSFERASE 22 IU/L (10-60); AST ASPARTATE AMINOTRANSFERASE 20 IU/L (10-42); BILIRUBIN,TOTAL 0.9 mg/dL (0.2-1.0); BUN - BLOOD UREA NITROGEN 14 mg/dL (6-20); CALCIUM 9.8 mg/dL (8.5-10.3); CARBON DIOXIDE - CO2 26 mmol/L (21-32); CHLORIDE 106 mmol/L (101-111); CHOL/HDL RATIO 2.8 (<4.4); CHOLESTEROL 128 mg/dL; CREATININE 0.7 mg/dL (0.4-1.0); GFR - MDRD 83 (>89); GLUCOSE 115 mg/dL (70-100); HDL CHOLESTEROL 45 mg/dL; LDL CHOLESTEROL,CALCULATED 57 mg/dL; LDL/HDL RATIO 1.3 (<4.4); POTASSIUM 4.2 mmol/L (3.5-5.0); SODIUM 139 mmol/L (135-145); TOTAL PROTEIN 7.5 g/dL (6.7-8.2); TRIGLYCERIDES 129 mg/dL; VLDL CHOLESTEROL 26 mg/dL
[2020-12-24 12:33] LABS: ESTIMATED AVERAGE GLUCOSE 137 mg/dL (70-100); HEMOGLOBIN A1c% 6.4 % (4.27-6.07)
[2020-12-28 18:35] LABS: HDL LARGE 6367 nmol/L (>6729); LDL MEDIUM 167 nmol/L (<215); LDL PARTICLE NUMBER 823 nmol/L (<1138); LDL PATTERN B Pattern (A); LDL PEAK SIZE 215.6 Angstrom (>222.9); LDL SMALL 126 nmol/L (<142)
== END 2020-12-24 23:59 | disposition home or self-care (01) ==
LOC: LAB.WCP 08:00
PROVIDERS: ATTEND Physician Assistant Medical
DX: E11.9 Type 2 diabetes mellitus without complications (principal); E78.5 Hyperlipidemia, unspecified
CPT/HCPCS: 36415; 80053; 80061; 81599; 83036; 83704; 83721

== ENCOUNTER 2021-04-23 08:00 | Outpatient (CLI) | payer MEDICARE, OTHER ==
[2021-04-23 11:56] LABS: CALCIUM 9.9 mg/dL (8.5-10.3); CREATININE 0.7 mg/dL (0.4-1.0); POTASSIUM 4.4 mmol/L (3.5-5.0)
[2021-04-23 12:25] LABS: ESTIMATED AVERAGE GLUCOSE 128 mg/dL (70-100); HEMOGLOBIN A1c% 6.1 % (4.27-6.07)
== END 2021-04-23 23:59 | disposition home or self-care (01) ==
LOC: LAB.WCP 08:00
PROVIDERS: ATTEND Physician Assistant Medical
DX: E11.9 Type 2 diabetes mellitus without complications (principal)
CPT/HCPCS: 36415; 80048; 83036

== ENCOUNTER 2021-08-16 16:52 | Outpatient (CLI) | payer MEDICARE, OTHER ==
[2021-08-16 19:03] LABS: BACTERIAL VAGINOSIS DNA NEGATIVE (NEGATIVE); CANDIDA GLABRATA DNA NEGATIVE (NEGATIVE); CANDIDA GROUP DNA POSITIVE (NEGATIVE); CANDIDA KRUSEI DNA NEGATIVE (NEGATIVE); TRICHOMONAS VAGINALIS DNA NEGATIVE (NEGATIVE)
== END 2021-08-16 16:53 | disposition home or self-care (01) ==
LOC: LAB.R 16:52 → LAB.WC 16:53
PROVIDERS: ATTEND Obstetrics & Gynecology
DX: N98.8 Other complications associated with artificial fertilization (principal)
CPT/HCPCS: 87661; 87801

== ENCOUNTER 2021-09-02 08:00 | Outpatient (CLI) | payer MEDICARE, OTHER ==
[2021-09-02 12:51] LABS: BILIRUBIN,URINE NEGATIVE (NEGATIVE); GLUCOSE, URINE (UA) NEGATIVE (NEGATIVE); KETONES,URINE (UA) NEGATIVE (NEGATIVE); LEUKOCYTE ESTERASE, URINE SMALL (NEGATIVE); NITRITE,URINE NEGATIVE (NEGATIVE); OCCULT BLOOD,URINE NEGATIVE (NEGATIVE); PH,URINE 7.5 PH (5.0-7.5); PROTEIN,URINE NEGATIVE (NEGATIVE); UROBILINOGEN,URINE 0.2 (NORMAL) E.U./dL (NORMAL)
[2021-09-02 13:04] LABS: BACTERIA,URINE Few /HPF (None Seen); CLARITY,URINE CLEAR (CLEAR); RBC,URINE 0-5 /HPF (0-5); SQUAMOUS EPITHELIAL CELL,UR FEW Squamous (<= Few)
== END 2021-09-02 23:59 | disposition home or self-care (01) ==
LOC: LAB.WC 08:00
PROVIDERS: ATTEND Obstetrics & Gynecology
DX: R32 Unspecified urinary incontinence (principal)
CPT/HCPCS: 81001; 87086

== ENCOUNTER 2021-09-03 07:45 | Outpatient (CLI) | payer MEDICARE, OTHER ==
[2021-09-03 14:48] LABS: ALBUMIN 4.5 g/dL (3.2-5.5); ALBUMIN/GLOBULIN RATIO 1.4 (1.0-2.2); ALKALINE PHOSPHATASE 64 IU/L (42-121); ALT ALANINE AMINOTRANSFERASE 26 IU/L (10-60); AST ASPARTATE AMINOTRANSFERASE 22 IU/L (10-42); BILIRUBIN,TOTAL 1.3 mg/dL (0.2-1.0); BUN - BLOOD UREA NITROGEN 14 mg/dL (6-20); CALCIUM 9.7 mg/dL (8.5-10.3); CARBON DIOXIDE - CO2 30 mmol/L (21-32); CHLORIDE 100 mmol/L (101-111); CHOL/HDL RATIO 2.5 (<4.4); CHOLESTEROL 138 mg/dL; CREATININE 0.7 mg/dL (0.4-1.0); GFR - MDRD 83 (>89); GLUCOSE 130 mg/dL (70-100); HDL CHOLESTEROL 55 mg/dL; LDL CHOLESTEROL,CALCULATED 55 mg/dL; POTASSIUM 4.7 mmol/L (3.5-5.0); SODIUM 140 mmol/L (135-145); TOTAL PROTEIN 7.8 g/dL (6.7-8.2); TRIGLYCERIDES 139 mg/dL; VLDL CHOLESTEROL 28 mg/dL
[2021-09-03 17:04] LABS: ESTIMATED AVERAGE GLUCOSE 131 mg/dL (70-100); HEMOGLOBIN A1c% 6.2 % (4.27-6.07)
== END 2021-09-03 07:46 | disposition home or self-care (01) ==
LOC: LAB.N 07:45
PROVIDERS: ATTEND Physician Assistant Medical
DX: E11.9 Type 2 diabetes mellitus without complications (principal)
CPT/HCPCS: 36415; 80053; 80061; 83036; 83721

== ENCOUNTER 2021-09-20 08:00 | Outpatient (CLI) | payer MEDICARE, OTHER ==
[2021-09-20 21:44] LABS: BACTERIAL VAGINOSIS DNA NEGATIVE (NEGATIVE); CANDIDA GLABRATA DNA NEGATIVE (NEGATIVE); CANDIDA GROUP DNA POSITIVE (NEGATIVE); CANDIDA KRUSEI DNA NEGATIVE (NEGATIVE); TRICHOMONAS VAGINALIS DNA NEGATIVE (NEGATIVE)
== END 2021-09-20 23:59 | disposition home or self-care (01) ==
LOC: LAB 08:00
PROVIDERS: ATTEND Obstetrics & Gynecology
DX: N89.8 Other specified noninflammatory disorders of vagina (principal)
CPT/HCPCS: 87661; 87801

== ENCOUNTER 2021-09-20 10:56 | Outpatient (CLI) | payer MEDICARE, OTHER ==
--- NOTE | 2021-09-21 11:45 | Mammography Report ---
BILATERAL DIGITAL SCREENING MAMMOGRAM 3D/2D: 09/20/2021 CLINICAL: Routine screening. Comparison is made to exams dated: 08/12/2020 mammogram, 06/14/2019 mammogram, and 03/29/2018 mammogram - [facility]. There are scattered fibroglandular elements in both breasts. No significant masses, calcifications, or other findings are seen in either breast. There has been no significant interval change. IMPRESSION: NEGATIVE There is no mammographic evidence of malignancy. A 1 year screening mammogram is recommended. This exam was interpreted at Station ID: [id number]. NOTE: For mammograms, a report in lay terms will be sent to the patient. Approximately 15% of breast malignancies will not be visualized mammographically. In the management of a palpable breast mass, a negative mammogram must not discourage biopsy of a clinically suspicious lesion. Electronically Signed By: Summer farnsworth/penrad:09/20/2021 12:03:19 ACR BI-RADS Category 1: Negative 3341F PARENCHYMAL PATTERN: (A) - The breast(s) demonstrate(s) scattered fibroglandular densities. BI-RADS CATEGORY: (1) - 1 RECOMMENDATION: (ANNUAL) - Recommend routine annual screening mammography. [id number] 1 year screening LATERALITY: (B)
== END 2021-09-20 10:57 | disposition home or self-care (01) ==
LOC: DI.N 10:56
PROVIDERS: ATTEND Obstetrics & Gynecology
DX: Z12.31 Encounter for screening mammogram for malignant neoplasm of breast (principal)

== ENCOUNTER 2022-08-30 07:45 | Outpatient (CLI) | payer MEDICARE, OTHER ==
[2022-08-30 13:19] LABS: ESTIMATED AVERAGE GLUCOSE 148 mg/dL (70-100); HEMOGLOBIN A1c% 6.8 % (4.27-6.07)
[2022-08-30 17:49] LABS: CALCIUM 10.7 mg/dL (8.5-10.3); CREATININE 0.7 mg/dL (0.4-1.0); POTASSIUM 4.6 mmol/L (3.5-5.0)
== END 2022-08-30 07:46 | disposition home or self-care (01) ==
LOC: LAB.N 07:45
PROVIDERS: ATTEND Physician Assistant Medical
DX: E11.9 Type 2 diabetes mellitus without complications (principal)
CPT/HCPCS: 36415; 80048; 83036

== ENCOUNTER 2022-08-30 07:49 | Outpatient (CLI) | payer MEDICARE, OTHER ==
--- NOTE | 2022-08-31 11:29 | Mammography Report ---
BILATERAL DIGITAL SCREENING MAMMOGRAM 3D/2D: 08/30/2022 CLINICAL: Routine screening. Comparison is made to exams dated: 09/20/2021 mammogram, 08/12/2020 mammogram, 06/14/2019 mammogram, mammogram, 01/27/2017 mammogram, and 01/28/2016 mammogram - [facility]. There are scattered areas of fibroglandular density in both breasts (category b / 25%-50% glandular t issue). No significant masses, calcifications, or other findings are seen in either breast. There has been no significant interval change. IMPRESSION: NEGATIVE There is no mammographic evidence of malignancy. A 1 year screening mammogram is recommended. Based on the Tyrer Cuzick model (a risk assessment model) the patients lifetime risk is 6.3% and her 10 year risk is 4.0%. According to the ACR, ACS, and NCCN guidelines, an annual breast MRI exam shirley g with mammogram is recommended if the patients lifetime risk is 20% or greater. This exam was interpreted at Station ID: [id number]. NOTE: For mammograms, a report in lay terms will be sent to the patient. Approximately 15% of breast malignancies will not be visualized mammographically. In the management of a palpable breast mass, a negative mammogram must not discourage biopsy of a clinically suspicious lesion. Electronically Signed By: Summer farnsworth/zoya:08/30/2022 16:37:57 ACR BI-RADS Category 1: Negative 3341F PARENCHYMAL PATTERN: (A) - The breast(s) demonstrate(s) scattered fibroglandular densities. BI-RADS CATEGORY: (1) - 1 RECOMMENDATION: (ANNUAL) - Recommend routine annual screening mammography. [id number] 1 year screening LATERALITY: (B)
== END 2022-08-30 07:50 | disposition home or self-care (01) ==
LOC: DI.N 07:49
PROVIDERS: ATTEND Nurse Practitioner
DX: Z12.31 Encounter for screening mammogram for malignant neoplasm of breast (principal)

== ENCOUNTER 2022-09-30 15:33 | Outpatient (CLI) | payer MEDICARE, OTHER | END 2022-09-30 15:34 | disposition home or self-care (01) | LOC: MAC.INF 15:33 | PROVIDERS: ATTEND Physician Assistant | DX: R00.2 Palpitations (principal) | CPT/HCPCS: 93246 ==

== ENCOUNTER 2022-10-26 13:30 | Outpatient (CLI) | payer MEDICARE, OTHER | END 2022-10-26 13:31 | disposition home or self-care (01) | LOC: MAC.INF 13:30 | PROVIDERS: ATTEND Physician Assistant Medical | DX: R00.2 Palpitations (principal); I47.1 Supraventricular tachycardia; I45.9 Conduction disorder, unspecified; I49.1 Atrial premature depolarization; I49.3 Ventricular premature depolarization | CPT/HCPCS: 93248 ==

== ENCOUNTER 2022-11-18 10:57 | Outpatient (CLI) | payer MEDICARE, OTHER | END 2022-11-18 10:58 | disposition home or self-care (01) | LOC: NS 10:57 | PROVIDERS: ATTEND Family Medicine | DX: Z71.3 Dietary counseling and surveillance (principal); E11.9 Type 2 diabetes mellitus without complications; K59.00 Constipation, unspecified | CPT/HCPCS: 97803 ==

== ENCOUNTER 2023-05-18 08:21 | Outpatient (CLI) | payer MEDICARE, OTHER ==
[2023-05-18 12:35] LABS: CALCIUM 9.9 mg/dL (8.5-10.3); CREATININE 0.7 mg/dL (0.6-1.3); POTASSIUM 4.2 mmol/L (3.5-4.5)
[2023-05-18 12:39] LABS: ESTIMATED AVERAGE GLUCOSE 148 mg/dL (70-100); HEMOGLOBIN A1c% 6.8 % (4.27-6.07)
== END 2023-05-18 08:22 | disposition home or self-care (01) ==
LOC: LAB.N 08:21
PROVIDERS: ATTEND Physician Assistant Medical
DX: E11.9 Type 2 diabetes mellitus without complications (principal)
CPT/HCPCS: 36415; 80048; 83036

== ENCOUNTER 2023-07-27 10:57 | Emergency (ER) | payer MEDICARE, OTHER ==
--- NOTE | 2023-07-27 11:20 | ED Physician Documentation ---
PD HPI HEADACHE - Stated complaint Stated Complaint: FACE NUMB/SHARP HEAD ACHE - Chief complaint Chief Complaint: Neuro - History obtained from History obtained from: Patient - History of Present Illness Timing - onset: Last night Timing - duration: Minutes (20-30) Timing - details: Abrupt onset (The patient describes an abrupt severe general headache while she was struggling with her cat to give medication. No fall or injury. Abrupt headache associated with blurred vision lasting 20 minutes then improved. No residual weaknesses or headache today. She went to Walk In, referred to ER.), Now resolved Worst headache ever?: Worst headache ever? (yes) Location: Global Quality: [place] Associated symptoms: Eye pain (blurred vision for the time of the headache.). No: Fever, Stiff neck, Nausea Improved by: Rest Contributing factors: No: Anticoagulated Recently seen: Clinic (She went to the walk-in actually for a cat bite and received with wound care and prescription for antibiotics. She told them about the headache and referred to the ER.) Review of Systems Constitutional: denies: Fever, Chills Eyes: denies: Loss of vision, Decreased vision, Photophobia GI: denies: Nausea, Vomiting PD PAST MEDICAL HISTORY - Past Medical History Cardiovascular: Hypertension, High cholesterol, Murmur Respiratory: None Endocrine/Autoimmune: Type 2 diabetes GI: None : None HEENT: None Psych: Panic attacks Musculoskeletal: None Derm: None - Past Surgical History Past Surgical History: Yes General: Cholecystectomy - Present Medications Home Medications: Ambulatory Orders Medication Instructions Recorded Confirmed Aspirin [Aspir-Low] 81 mg PO DAILY 11/26/15 03/13/19 Acetaminophen [Tylenol] 650 mg PO Q6H PRN 03/13/19 03/13/19 Biotin 5,000 mcg PO DAILY 03/13/19 03/13/19 Calcium Carb/Mag Ox/Zinc Sulf [Cvs 1 each PO DAILY 03/13/19 03/13/19 Jciwagz-[id number]-Eqr Cplt] Multivitamin [Multiple Vitamins] 1 each PO DAILY 03/13/19 03/13/19 [place]-3/Dha/Epa/Fish Oil [Fish Oil 1 each PO DAILY 03/13/19 03/13/19 1,000 mg Softgel] Turmeric Root Extract [Turmeric] 1,000 mg PO DAILY 03/13/19 03/13/19 Ubidecarenone [Co Q10] 100 mg PO DAILY 03/13/19 03/13/19 lisinopriL [Lisinopril] 20 mg PO DAILY 03/13/19 03/13/19 - Allergies Allergies/Adverse Reactions: Allergies Allergy/AdvReac Type Severity Reaction Status Date / Time niacin Allergy Hives Verified 07/27/23 11:10 Sulfa (Sulfonamide Allergy Hives Verified 07/27/23 11:10 Antibiotics) - Social History Does the pt smoke?: No Smoking Status: Never smoker Does the pt drink ETOH?: Yes Does the pt have substance abuse?: No - Immunizations Immunizations are current?: Yes - POLST Patient has POLST: No PD ED PE NORMAL - Vitals Vital signs reviewed: Yes - General General: Alert and oriented X 3, No acute distress, Well developed/nourished - HEENT HEENT: Other (no tenderness at temples/forehead.) - Neck Neck: Supple, no meningeal sign, No adenopathy - Cardiac Cardiac: RRR, No murmur - Respiratory Respiratory: Clear bilaterally - Derm Derm: Normal color, Warm and dry - Neuro Neuro: Alert and oriented X 3, 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 ) PD Medical Decision Making - ED course Complexity details: reviewed results (no ICH/aute changes noted. ), considered differential (abrupt severe headache with brief visual cahnges/blurring. No other neuro symptoms. Onset when trying to armand cat medications and it bit her, so emotional stressful. No head injury. No recent URI symptoms/fevers. Consider SAH/ICH and get CT. ), d/w patient Departure - Departure Disposition: Home, Self Care Clinical Impression: Acute headache Condition: Stable Record reviewed to determine appropriate education?: Yes Instructions: ED Cephalgia Unspecified Follow-Up: Benita Espino PA-C [Primary Care Provider] - Comments: Your head CT appears normal without any acute bleeding swelling tumors etc. Presume the headache was more stress related (functional headache). At this point it is reasonable to use Tylenol or ibuprofen if needed for any residual headache. Continue care as per the walk-in clinic regarding the cat bite to watch for signs of infection etc. Forms: PCP List Discharge Date/Time: 07/27/23 13:37
[2023-07-27] MEDS ORDERED: ACETAMINOPHEN 500 MG TABLET PO STA (11:44)
--- NOTE | 2023-07-27 13:25 | CT Report ---
PROCEDURE: Head WO INDICATIONS: abrupt headache TECHNIQUE: Noncontrast 4.5 mm thick angled axial sections acquired from the foramen magnum to the vertex. For r adiation dose reduction, the following was used: automated exposure control, adjustment of mA and/or kV according to patient size. COMPARISON: None. FINDINGS: Image quality: Excellent. The ventricular system and cortical sulci demonstrate atrophy, consistent for patient's stated age. There are areas of hypodensity in the periventricular and subcortical white matter. There is no acut e intra or extra-axial fluid collection. No acute hemorrhage, mass lesion or midline shift. Brainst em is unremarkable. Globes are symmetrical. Sinuses are aerated. Osseous structures are intact. IMPRESSION: 1. No acute intracranial process. 2. Mild atrophy and chronic microvascular ischemic changes. Reviewed by: Zoe Feliciano MD on 07/27/2023 1:24 PM [facility] Approved by: Zoe Feliciano MD on 07/27/2023 1:24 PM [facility] Station ID: [id number]
[2023-07-27 13:42] VITALS: BP 144/87; O2SAT 97
== END 2023-07-27 13:37 | disposition home or self-care (01) ==
LOC: ED 10:57
DX: R51.9 Headache, unspecified (principal); T14.8XXA Other injury of unspecified body region, initial encounter; W55.01XA Bitten by cat, initial encounter; Y93.K9 Activity, other involving animal care
CPT/HCPCS: 70450; 99283; 99284; A9270

== ENCOUNTER 2023-08-14 10:50 | Outpatient (CLI) | payer MEDICARE, OTHER ==
[2023-08-14] MEDS ORDERED: iohexoL-300 100 ML VIAL ONE (11:32)
[2023-08-14 12:51] LABS: CREATININE 0.6 mg/dL (0.6-1.3)
[2023-08-14] MEDS ORDERED: iohexoL-300 100 ML VIAL IVP ONE (15:39)
--- NOTE | 2023-08-14 18:33 | CT Report ---
PROCEDURE: CT angiogram head and neck. INDICATIONS: THUNDERCLAP HEADACHE TECHNIQUE: Helical axial CT of the head and neck was obtained during the arterial phase of a intrave nous contrast injection utilizing an angiographic protocol. Multiplanar traditional and MIP reformat s were also obtained. Dose reduction techniques included either automated exposure control or adjustm ent of exposure parameters. COMPARISON: None. FINDINGS: Cerebral CT Angiogram: Internal carotid arteries: No acute findings. Intracranial ICA are patent with no significant steno sis. No occlusion. No aneurysm. Anterior cerebral arteries: Unremarkable. No significant stenosis. No occlusion. No aneurysm. Middle cerebral arteries: Unremarkable. No significant stenosis. No occlusion. No aneurysm. Posterior cerebral arteries: Unremarkable. No significant stenosis. No occlusion. No aneurysm. Basilar artery: Unremarkable. No significant stenosis. No occlusion. No aneurysm. Vertebral arteries: Unremarkable as visualized. Dural venous sinuses: Unremarkable given phase of enhancement. Other: Arterial phase appearance of the brain parenchyma is unremarkable. Neck CT Angiogram: Internal carotid arteries: Unremarkable. No significant stenosis. No dissection or occlusion. Common carotid arteries: Unremarkable. No significant stenosis. No dissection or occlusion. External carotid arteries: Unremarkable. No occlusion. Vertebral arteries: Unremarkable. No significant stenosis. No dissection or occlusion. Aortic Arch and Mediastinum: Partially visualized aortic arch unremarkable without evidence of aneury sm. Origins of the great vessels unremarkable. Other: Arterial phase soft tissues of the neck are unremarkable. Degenerative disc disease and arthro venus in mid cervical spine without significant central stenosis IMPRESSION: Unremarkable CT angiogram of the head and neck. No large vessel occlusion, aneurysm or vascular malfo rmation. Reviewed by: Ren Alonzo MD on 08/14/2023 5:32 PM [facility] Approved by: Ren Alonzo MD on 08/14/2023 5:32 PM [facility] Station ID: [id number]
--- NOTE | 2023-08-14 18:34 | CT Report ---
PROCEDURE: CT brain without contrast INDICATIONS: THUNDERCLAP HEADACHE TECHNIQUE: Helical axial CT of the brain was obtained without contrast and reformatted in multiple p lanes. Radiation dose reduction was achieved using automated exposure control or adjustment of mA and /or kV according to patient size. COMPARISON: None FINDINGS: CSF spaces: Ventricles are appropriate in size and position. No hydrocephalus. Basal cisterns unre markable. Brain: No midline shift. No intracranial masses or hemorrhage. Luna-white matter interface is norm al. Skull and face: Calvarium and skull base are unremarkable without suspicious lesion. Sinuses: Visualized sinuses and mastoids are clear. IMPRESSION: Unremarkable CT of the brain Reviewed by: Ren Alonzo MD on 08/14/2023 5:33 PM [facility] Approved by: Ren Alonzo MD on 08/14/2023 5:33 PM [facility] Station ID: [id number]
== END 2023-08-14 10:51 | disposition home or self-care (01) ==
LOC: LAB 10:50
PROVIDERS: ATTEND Physician Assistant Medical
DX: G44.53 Primary thunderclap headache (principal); R20.2 Paresthesia of skin; I71.20 Thoracic aortic aneurysm, without rupture, unspecified
CPT/HCPCS: 36415; 70450; 70496; 70498; 82565; Q9967

== ENCOUNTER 2023-09-14 08:06 | Outpatient (CLI) | payer MEDICARE, OTHER ==
[2023-09-14 11:48] LABS: ESTIMATED AVERAGE GLUCOSE 163 mg/dL (70-100); HEMOGLOBIN A1c% 7.3 % (4.27-6.07)
[2023-09-14 12:00] LABS: BUN - BLOOD UREA NITROGEN 16 mg/dL (6-20); CALCIUM 10.1 mg/dL (8.5-10.3); CARBON DIOXIDE - CO2 30 mmol/L (21-32); CHLORIDE 102 mmol/L (101-111); CHOL/HDL RATIO 2.9 (<4.4); CHOLESTEROL 128 mg/dL; CREATININE 0.7 mg/dL (0.6-1.3); GFR - MDRD 82 (>89); GLUCOSE 164 mg/dL (74-104); HDL CHOLESTEROL 44 mg/dL; LDL CHOLESTEROL,CALCULATED 42 mg/dL; POTASSIUM 4.3 mmol/L (3.5-4.5); SODIUM 138 mmol/L (135-145); TRIGLYCERIDES 211 mg/dL (48-352); VLDL CHOLESTEROL 42 mg/dL
== END 2023-09-14 08:07 | disposition home or self-care (01) ==
LOC: LAB.N 08:06
PROVIDERS: ATTEND Physician Assistant Medical
DX: E11.9 Type 2 diabetes mellitus without complications (principal)
CPT/HCPCS: 36415; 80048; 80061; 83036; 83721

== ENCOUNTER 2023-10-10 12:49 | Outpatient (CLI) | payer MEDICARE, OTHER ==
--- NOTE | 2023-10-11 11:14 | Mammography Report ---
BILATERAL DIGITAL SCREENING MAMMOGRAM 3D/2D: 10/10/2023 CLINICAL: Routine screening. Comparison is made to exams dated: 08/30/2022 mammogram, 09/20/2021 mammogram, and 08/12/2020 mammogram - [facility]. There are scattered areas of fibroglandular density in both breasts (category b / 25%-50% glandular t issue). No significant masses, calcifications, or other findings are seen in either breast. There has been no significant interval change. IMPRESSION: NEGATIVE There is no mammographic evidence of malignancy. A 1 year screening mammogram is recommended. Based on the Tyrer Cuzick model (a risk assessment model) the patient's lifetime risk is 5.9% and her 10 year risk is 4.1%. According to the ACR, ACS, and NCCN guidelines, an annual breast MRI exam shirley g with mammogram is recommended if the patient's lifetime risk is 20% or greater. This exam was interpreted at Station ID: [id number]. NOTE: For mammograms, a report in lay terms will be sent to the patient. Approximately 15% of breast malignancies will not be visualized mammographically. In the management of a palpable breast mass, a negative mammogram must not discourage biopsy of a clinically suspicious lesion. Electronically Signed By: Mio burnett/zoya:10/10/2023 16:12:19 letter sent: No_Letter ACR BI-RADS Category 1: Negative 3341F PARENCHYMAL PATTERN: (A) - The breast(s) demonstrate(s) scattered fibroglandular densities. BI-RADS CATEGORY: (1) - 1 RECOMMENDATION: (ANNUAL) - Recommend routine annual screening mammography. [id number] 1 year screening LATERALITY: (B)
== END 2023-10-10 12:50 | disposition home or self-care (01) ==
LOC: DI.N 12:49
PROVIDERS: ATTEND Nurse Practitioner
DX: Z12.31 Encounter for screening mammogram for malignant neoplasm of breast (principal); R92.323 Mammographic fibroglandular density, bilateral breasts

== ENCOUNTER 2023-12-26 08:18 | Outpatient (CLI) | payer MEDICARE, OTHER ==
[2023-12-26 12:17] LABS: CALCIUM 10.2 mg/dL (8.5-10.3); CREATININE 0.8 mg/dL (0.6-1.3); POTASSIUM 4.7 mmol/L (3.5-4.5)
[2023-12-26 12:18] LABS: ESTIMATED AVERAGE GLUCOSE 169 mg/dL (70-100); HEMOGLOBIN A1c% 7.5 % (4.27-6.07)
== END 2023-12-26 08:19 | disposition home or self-care (01) ==
LOC: LAB.N 08:18
PROVIDERS: ATTEND Physician Assistant Medical
DX: E11.9 Type 2 diabetes mellitus without complications (principal)
CPT/HCPCS: 36415; 80048; 83036

== ENCOUNTER 2024-01-22 14:25 | Outpatient (CLI) | payer MEDICARE, OTHER ==
--- NOTE | 2024-01-23 21:16 | DEXA Report ---
PROCEDURE: Dexa Spine and/or Hip INDICATIONS: POST MENOPAUSAL TECHNIQUE: Dual energy x-ray absorptiometry (DEXA) was performed in the regions detailed below. COMPARISON: None. FINDINGS: Lumbar Spine: Bone Mineral Density 1.018 g/cm/cm,T score -1.3. Previously -1.0 Left Femoral Neck: Bone Mineral Density 0.930 g/cm/cm, T score -0.8. Previously -0.4 Left Total Hip: Bone Mineral Density 0.928 g/cm/cm,T score -0.6. Previously -0.4 (T score greater or equal to -1.0: NORMAL) (T score from -1.1 to -2.4: OSTEOPENIA) (T score less than or equal to -2.5 to: OSTEOPOROSIS) IMPRESSION: Osteopenia Patients with diagnosis of osteoporosis or osteopenia should have regular bone mineral density assess ment. For those eligible for Medicare, routine testing is allowed once every 2 years. Testing frequ ency can be increased for patients who have rapidly progressing disease or for those who are receivin g medical therapy to restore bone mass. Reviewed by: Ren Alonzo MD on 01/23/2024 8:14 PM [facility] Approved by: Ren Alonzo MD on 01/23/2024 8:14 PM [facility] Station ID: [id number]
== END 2024-01-22 14:26 | disposition home or self-care (01) ==
LOC: DI 14:25
PROVIDERS: ATTEND Physician Assistant Medical
DX: M85.88 Other specified disorders of bone density and structure, other site (principal); Z78.0 Asymptomatic menopausal state